=== PATIENT | male | born 1985 | race Two or more races ===

== ENCOUNTER 2020-04-13 14:38 | Inpatient (IN) | payer OTHER ==
[~2020-04-13] VITALS: Ht 185.4 cm; Wt 94.1 kg
[2020-04-13 15:31] LABS: Basophils # (auto) 0 10 ^3/uL (0-0.2); Basophils % (auto) 0.3 % (0.0-2.0); Eosinophils # (auto) 0 10 ^3/uL (0-0.8); Eosinophils % (auto) 0.1 % (0.0-7.0); Hematocrit 43.3 % (41.0-53.0); Hemoglobin 15.3 g/dL (13.5-17.5); Lymphocytes # (auto) 1.8 10 ^3/uL (0.4-5.4); Lymphocytes % (auto) 27.5 % (10.0-50.0); Mean Corpuscular Hemoglobin 29.6 pg (28.0-32.0); Mean Corpuscular Hgb Conc. 35.4 g/dL (32.0-36.0); Mean Corpuscular Volume 83.8 fL (80.0-100.0); Monocytes # (auto) 0.5 10 ^3/uL (0-1.3); Monocytes % (auto) 7.5 % (0.0-12.0); Neutrophils # (auto) 4.3 10 ^3/uL (1.6-8.6); Neutrophils % (auto) 64.6 % (37.0-80.0); Nucleated Red Blood Cells % 0.1 %; Platelet Count (auto) 164 10^3/uL (140-450); Red Blood Cells 5.17 10^6/uL (4.5-5.90); Red Cell Distribution Width 12.6 % (11.8-14.3); White Blood Cell 6.6 10^3/uL (4.4-10.8)
[2020-04-13 15:50] LABS: Albumin 3.6 g/dL (3.4-5.0); BUN/Creatinine Ratio 10.1; Calcium 8.1 mg/dL (8.5-10.1); INR 1.05 (0.9-1.15); Partial Thromboplastin Time 29.6 sec (23.0-31.2); Potassium 4.1 mmol/L (3.5-5.1)
[2020-04-13 15:52] LABS: Bilirubin, Total 0.4 mg/dL (0.2-1.0)
[2020-04-13] MEDS ORDERED: IOHEXOL 350 MG/ML 100ML IJ ONE (16:29)
[2020-04-13] MEDS ORDERED: cefTRIAXone SOD 1,000 MG VL IM ONE (16:30)
[2020-04-13] MEDS ORDERED: DOXYCYCLINE 100 MG TAB/CAP PO ONE (16:30)
[2020-04-13] MEDS ORDERED: methylPREDNISolone SOD SUCC 125 MG/2 ML VL IM ONE (16:30)
[2020-04-13] MEDS ORDERED: cefTRIAXone SOD 1,000 MG VL IV ONE (17:15)
[2020-04-13] MEDS ORDERED: methylPREDNISolone SOD SUCC 125 MG/2 ML VL IV ONE (17:15)
[2020-04-13] MEDS ORDERED: cefTRIAXone 1GM/50ML D5W 50 ML IV ONE (17:30)
[2020-04-13] MEDS ORDERED: SODIUM CHLORIDE 0.9% 1,000 ML IV ONE (17:45)
[2020-04-13] MEDS ORDERED: ONDANSETRON HCL 4 MG/2 ML VIAL IV PRN (18:00)
[2020-04-13] MEDS ORDERED: NITROGLYCERIN 0.4 MG SL TAB SL PRN (18:00)
[2020-04-13] MEDS ORDERED: PANTOPRAZOLE 40 MG TAB PO ONE (18:00)
[2020-04-13] MEDS ORDERED: MORPHINE SULF INJ 2 MG/ML SYRINGE 1ML IV PRN (18:00)
[2020-04-13] MEDS ORDERED: ALBUTEROL SULF HFA 90MCG INH 200DOSE IN SCH (22:00)
[2020-04-13] MEDS: ALBUTEROL SULF HFA 90MCG INH 200DOSE IN SCH (22:04)
[2020-04-13] MEDS: ASCORBIC ACID 500 MG TAB PO SCH (22:53)
[2020-04-13] MEDS: methylPREDNISolone SOD SUCC 125 MG/2 ML VL IV SCH (22:53)
[2020-04-14] MEDS: ALBUTEROL SULF HFA 90MCG INH 200DOSE IN SCH ×2 (06:45→14:00)
[2020-04-14] MEDS: methylPREDNISolone SOD SUCC 125 MG/2 ML VL IV SCH ×2 (10:22→21:55)
[2020-04-14] MEDS: cefTRIAXone 1GM/50ML D5W 50 ML IV SCH (10:22)
[2020-04-14] MEDS: ZINC SULFATE 220mg CAP or TAB PO SCH (10:22)
[2020-04-14] MEDS: ASCORBIC ACID 500 MG TAB PO SCH ×2 (10:22→21:56)
[2020-04-14] MEDS: CHOLECALCIFEROL (VITD3) 1,000UNIT=25mCg TAB PO SCH (10:23)
[2020-04-14] MEDS: ENOXAPARIN SOD 40 MG/0.4 ML SYRINGE SC SCH (10:23)
[2020-04-14] MEDS: AZITHROMYCIN 250 MG TAB PO SCH (11:47)
[2020-04-14 15:45] VITALS: BP 118/68
--- NOTE | 2020-04-14 15:45 | NUR ---
Telemetry admit from [facility] admitted to Telemetry unit after SBAR received. Patient oriented to SAMANTHA kang RN, unit, room, bed, and unit policies regarding patient care and visiting hours. Patient now on continuous telemetry monitoring, patient is med-surg. Patient placed on bedside oxygen at 2L, weighed by bedscale and encouraged to call if they need something. All questions and concerns addressed, patient verbalized understanding.
[2020-04-14 17:00] VITALS: BP 123/68
--- NOTE | 2020-04-14 19:10 | NUR ---
End of shift note Endorsed care to NOC RN. No s/s of distress noted.
--- NOTE | 2020-04-14 19:20 | NUR ---
Opening Shift Note Received report from Lucy SMITH. Assumed care of patient, awake and alert. camp guard at bedside. No S/S of distress/SOB or pain. Instructed on POC and to call for assist PRN, will continue to monitor for changes Q1hr and PRN.
[2020-04-14 19:59] VITALS: BP 111/65
--- NOTE | 2020-04-14 22:12 | NUR ---
Paged Dr. Pradhan to request for cough medication. Awaiting for call back.
[2020-04-15 05:00] VITALS: BP 119/47
[2020-04-15] MEDS: ALBUTEROL SULF HFA 90MCG INH 200DOSE IN SCH ×3 (06:00→22:00)
--- NOTE | 2020-04-15 08:35 | NUR ---
Opening Shift Note Received report from LUIS Campbell, Assumed care of patient, awake and alert. Patient on 2L nasal cannula PRN, oxygen saturation 91%, No S/S of distress/SOB or pain. Patient states wanting medication for dry cough, patient informed MD will be notified for request. Patient verbalized understanding and instructed on POC and to call for assist PRN, will continue to monitor for changes Q1hr and PRN.
[2020-04-15] MEDS: ZINC SULFATE 220mg CAP or TAB PO SCH (09:56)
[2020-04-15] MEDS: methylPREDNISolone SOD SUCC 125 MG/2 ML VL IV SCH ×2 (09:56→21:41)
[2020-04-15] MEDS: CHOLECALCIFEROL (VITD3) 1,000UNIT=25mCg TAB PO SCH (09:56)
[2020-04-15] MEDS: ENOXAPARIN SOD 40 MG/0.4 ML SYRINGE SC SCH (09:56)
[2020-04-15] MEDS: cefTRIAXone 1GM/50ML D5W 50 ML IV SCH (09:56)
[2020-04-15] MEDS: AZITHROMYCIN 250 MG TAB PO SCH (09:56)
[2020-04-15] MEDS: ASCORBIC ACID 500 MG TAB PO SCH ×2 (09:56→21:41)
--- NOTE | 2020-04-15 11:22 | NUR ---
TALKED TO MD FAUZIA SILVER MD, MD UPDATED ON STATUS OF PATIENT ALONG WITH RECENT VITALS.
--- NOTE | 2020-04-15 14:35 | NUR ---
MD MARIN NEW ORDERS RECIEVED BY ROLAND CHATMAN WITH CODEINE PRN PER PATIENTS REQUEST, PATIENT TO BE OFF OXYGEN.
[2020-04-15] MEDS: PROMETHAZINE W/CODEINE 5 ML ORAL SYRUP PO PRN ×2 (16:25→20:37)
--- NOTE | 2020-04-15 19:30 | NUR ---
Opening Shift Note Received report from Lindy SMITH. Assumed care of patient, awake and alert. Guards at bedside. No S/S of distress/SOB or pain. Instructed on POC and to call for assist PRN, will continue to monitor for changes Q1hr and PRN.
--- NOTE | 2020-04-15 20:17 | NUR ---
Patient educated on the use of Incentive Spirometry, return demonstration done and able to tolerate IS use.
[2020-04-15 22:21] VITALS: BP 112/60
[2020-04-16 05:19] VITALS: BP 127/77
[2020-04-16] MEDS: ALBUTEROL SULF HFA 90MCG INH 200DOSE IN SCH ×4 (06:00→21:07)
--- NOTE | 2020-04-16 08:20 | NUR ---
Opening Shift Note Received report from computer peripheral equipment operator LUIS Reece, Assumed care of patient, awake and alert. Patient on room air, No S/S of distress/SOB or pain. Patient with dry cough requests cough medication, patient given Phenergan PRN as ordered. Instructed on POC and to call for assist PRN, will continue to monitor for changes Q1hr and PRN. Bed in lowest position, call light within reach. Addendum: 04/16/20 at 1308 by YAMILE DOWELL RN RN GUARD AT BEDSIDE.
[2020-04-16 09:00] VITALS: BP 108/65
[2020-04-16] MEDS: cefTRIAXone 1GM/50ML D5W 50 ML IV SCH (10:31)
[2020-04-16] MEDS: ZINC SULFATE 220mg CAP or TAB PO SCH (10:32)
[2020-04-16] MEDS: CHOLECALCIFEROL (VITD3) 1,000UNIT=25mCg TAB PO SCH (10:32)
[2020-04-16] MEDS: ASCORBIC ACID 500 MG TAB PO SCH ×2 (10:32→21:22)
[2020-04-16] MEDS: methylPREDNISolone SOD SUCC 125 MG/2 ML VL IV SCH (10:32)
[2020-04-16] MEDS: AZITHROMYCIN 250 MG TAB PO SCH (10:33)
[2020-04-16] MEDS: ENOXAPARIN SOD 40 MG/0.4 ML SYRINGE SC SCH (10:33)
[2020-04-16 13:00] VITALS: BP 116/70
--- NOTE | 2020-04-16 15:07 | NUR ---
14:00 SCHEDULED TX NOT GIVEN. RT UNAVAILABLE. UPON ARRIVAL PT WAS FOUND IN NO DISTRESS. WILL RESUME NEXT SCHEDULED TX.
[2020-04-16 17:08] VITALS: BP 126/73
--- NOTE | 2020-04-16 18:00 | NUR ---
Rounds Dr. Pradhan at bedside.
--- NOTE | 2020-04-16 18:26 | NUR ---
PATIENT AMBULATING WITH GUARD PER MD MARIN ORDERS.
[2020-04-16] MEDS: methylPREDNISolone SOD SUCC 40 MG/ML VL IV SCH (18:27)
--- NOTE | 2020-04-16 18:32 | NUR ---
Patient ambulating the halls with steady gait, guards next to him for safety.
--- NOTE | 2020-04-16 19:15 | NUR ---
endorsed care to edie chavez.
[2020-04-16 21:35] VITALS: BP 108/65
[2020-04-16] MEDS: PROMETHAZINE W/CODEINE 5 ML ORAL SYRUP PO PRN (21:46)
[2020-04-17 05:26] VITALS: BP 103/58
--- NOTE | 2020-04-17 07:04 | NUR ---
PT RESTED WELL THROUGHOUT THE NIGHT WITH NO DISTRESS NOTED.
--- NOTE | 2020-04-17 07:48 | NUR ---
Opening Shift Note Received report from manager security RN Yajaira, Assumed care of patient, awake and alert. Patient supine in bed, on room air, No S/S of distress/SOB or pain. Guard at bedside, bed in lowest position, call light within reach. Patient complains of cough and needing cough medication, patient educated to use Incentive spirometer hourly and that Phenergan PRN would be given if due, patient verbalized understanding. Patient instructed on POC and to call for assist PRN, will continue to monitor for changes Q1hr and PRN.
[2020-04-17 09:00] VITALS: BP 111/64
[2020-04-17] MEDS: ALBUTEROL SULF HFA 90MCG INH 200DOSE IN SCH ×3 (09:05→18:53)
[2020-04-17] MEDS: cefTRIAXone 1GM/50ML D5W 50 ML IV SCH (09:24)
[2020-04-17] MEDS: AZITHROMYCIN 250 MG TAB PO SCH (09:25)
[2020-04-17] MEDS: CHOLECALCIFEROL (VITD3) 1,000UNIT=25mCg TAB PO SCH (09:25)
[2020-04-17] MEDS: ASCORBIC ACID 500 MG TAB PO SCH ×2 (09:25→21:21)
[2020-04-17] MEDS: methylPREDNISolone SOD SUCC 40 MG/ML VL IV SCH ×3 (09:25→21:21)
[2020-04-17] MEDS: PROMETHAZINE W/CODEINE 5 ML ORAL SYRUP PO PRN ×3 (09:26→21:29)
[2020-04-17] MEDS: ENOXAPARIN SOD 40 MG/0.4 ML SYRINGE SC SCH (09:26)
[2020-04-17] MEDS: ZINC SULFATE 220mg CAP or TAB PO SCH (09:55)
--- NOTE | 2020-04-17 11:08 | NUR ---
Nutrition Assessment Est energy needs [id number] kcal (20-22 kcal/kg BW 95.4kg) Est protein needs 76-95g (0.8-1g/kg BW 95.4kg) Will monitor and reassess prn. Addendum: 04/17/20 at [address] Amended: Links added.
[2020-04-17 12:46] VITALS: BP 106/60
[2020-04-17 17:00] VITALS: BP 111/61
--- NOTE | 2020-04-17 18:33 | NUR ---
ENDORSING CARE TO PATRICIA, PATIENT STABLE.
[2020-04-17 22:00] VITALS: BP 106/55
[2020-04-18 05:00] VITALS: BP 102/60
--- NOTE | 2020-04-18 07:30 | NUR ---
Opening Shift Note Assumed patient care from NOC RN. Patient currently sitting up in bed AOx4 on room air, SpO2 at 93%. Patient shows no signs of distress at this time and denies shortness of breath. Per patient, only complaint is a cough at this time. Safety precautions in place, guards at bedside. Will continue to monitor q1hr and PRN.
[2020-04-18] MEDS: cefTRIAXone 1GM/50ML D5W 50 ML IV SCH (09:13)
[2020-04-18] MEDS: AZITHROMYCIN 250 MG TAB PO SCH (09:14)
[2020-04-18] MEDS: methylPREDNISolone SOD SUCC 40 MG/ML VL IV SCH (09:14)
[2020-04-18] MEDS: CHOLECALCIFEROL (VITD3) 1,000UNIT=25mCg TAB PO SCH (09:14)
[2020-04-18] MEDS: ENOXAPARIN SOD 40 MG/0.4 ML SYRINGE SC SCH (09:15)
[2020-04-18] MEDS: ZINC SULFATE 220mg CAP or TAB PO SCH (09:15)
[2020-04-18] MEDS: ASCORBIC ACID 500 MG TAB PO SCH (09:15)
[2020-04-18] MEDS: PROMETHAZINE W/CODEINE 5 ML ORAL SYRUP PO PRN (09:25)
--- NOTE | 2020-04-18 10:20 | NUR ---
Ambulation Patient ambulated around unit x3, guards present. Patient denies shortness of breath at this time. No signs of distress noted at this time.
--- NOTE | 2020-04-18 10:30 | NUR ---
at Bedside Dr. Pradhan at bedside discussing plan of care with patient. Per Dr. Pradhan, patient to be discharged today. Guards are aware.
--- NOTE | 2020-04-18 13:22 | NUR ---
Discharge Discharge instructions given as ordered. Encourage to follow up with PMD as instructed. All questions and concerns addressed. Patient verbalized understanding. Medication reconciliation form completed and copy given to patient. IV removed with catheter intact, pressure dressing applied. Patient taken to vehicle via wheelchair with all personal belongings, accompanied by assisted staff. No distress noted at time of departure.
== END 2020-04-18 13:22 | DRG 177 ==
LOC: EDSEX 14:38 → EDBD 14:38 → EEVIPCON 14:38 → ER 14:38 → OVERFLOW 14:39 → EAST 04-14 15:30
PROVIDERS: ADMIT Internal Medicine; ATTEND Internal Medicine
DX: U07.1 COVID-19 (principal); J12.89 Other viral pneumonia; J96.01 Acute respiratory failure with hypoxia; R04.2 Hemoptysis; J98.11 Atelectasis; E86.0 Dehydration; R16.1 Splenomegaly, not elsewhere classified; E66.9 Obesity, unspecified; K44.9 Diaphragmatic hernia without obstruction or gangrene; F17.210 Nicotine dependence, cigarettes, uncomplicated; F10.10 Alcohol abuse, uncomplicated; Y90.9 Presence of alcohol in blood, level not specified; Z68.27 Body mass index [BMI] 27.0-27.9, adult; Z79.899 Other long term (current) drug therapy
CPT/HCPCS: 36415; 71045; 71275; 80053; 82728; 83605; 85025; 85379; 85610; 85730; 86141; 87040; 87426; 94640; G0378; J0696